=== PATIENT | female | born 1975 | race Caucasian/White ===

== ENCOUNTER 2016-10-26 02:45 | Emergency (ER) | payer MEDICAID, OTHER ==
[~2016-10-26] VITALS: Ht 142.2 cm; Wt 91.0 kg
[2016-10-26] MEDS ORDERED: KETOROLAC 60MG/2ML VIAL IM ONE (06:45)
[2016-10-26 07:10] VITALS: BP 127/73
== END 2016-10-26 10:15 | disposition home or self-care (01) ==
LOC: ER 02:50
DX: M51.36 Other intervertebral disc degeneration, lumbar region (principal); R20.9 Unspecified disturbances of skin sensation; M79.602 Pain in left arm; M79.601 Pain in right arm; M54.9 Dorsalgia, unspecified; Z90.49 Acquired absence of other specified parts of digestive tract
CPT/HCPCS: 72040; 72070; 72100; 81025; 96372; 99285; J1885

== ENCOUNTER 2017-03-23 02:18 | Emergency (ER) | payer OTHER ==
[~2017-03-23] VITALS: Ht 142.2 cm; Wt 122.5 kg
[2017-03-23 03:56] LABS: BASOPHILS % 0.6 % (0.0-2.0); EOSINOPHILS % 2.3 % (0.0-5.0); HEMATOCRIT. 33.4 % (36.0-48.0); HEMOGLOBIN. 10.9 g/dL (12.0-16.0); LYMPHOCYTES % 27.5 % (20.0-50.0); MEAN CORPUSCULAR HEMOGLOBIN 23.3 pg (28.0-32.0); MEAN CORPUSCULAR VOLUME 71.3 fL (81.0-99.0); MEAN PLATELET VOLUME 9.3 fl (7.4-10.4); MONOCYTES % 7.8 % (2.0-8.0); NEUTROPHILS % 61.8 % (40.0-76.0); PLATELET 216 x1000/uL (130-400); RED BLOOD CELL COUNT 4.68 mill/uL (4.2-5.4); RED CELL DISTRIBUTION WIDTH 15.8 % (11.6-14.6)
[2017-03-23 04:04] LABS: CARBON DIOXIDE 27 mEq/L (21-32); CHLORIDE 106 mEq/L (98-107)
[2017-03-23 06:14] VITALS: BP 130/80
== END 2017-03-23 06:14 | disposition home or self-care (01) ==
LOC: ER 02:19
DX: M79.606 Pain in leg, unspecified (principal); G89.29 Other chronic pain; M54.9 Dorsalgia, unspecified; Z90.49 Acquired absence of other specified parts of digestive tract; Z98.890 Other specified postprocedural states
CPT/HCPCS: 36415; 80048; 85025; 93005; 93970; 99285; Z7610

== ENCOUNTER 2019-11-23 00:57 | Emergency (ER) | payer MEDICAID, OTHER ==
[~2019-11-23] VITALS: Ht 142.2 cm; Wt 119.0 kg
[2019-11-23 01:06] VITALS: BP 124/72
== END 2019-11-23 02:10 | disposition home or self-care (01) ==
LOC: ER 00:57
DX: R20.0 Anesthesia of skin (principal); Z98.890 Other specified postprocedural states; Z90.49 Acquired absence of other specified parts of digestive tract; Z87.19 Personal history of other diseases of the digestive system
CPT/HCPCS: 99281

== ENCOUNTER 2021-06-03 16:15 | Inpatient (IN) | payer MEDICAID ==
[~2021-06-03] VITALS: Ht 142.2 cm; Wt 120.2 kg
[2021-06-03] MEDS ORDERED: DEXAMETHASONE 10 MG/ML VIAL IV ONE (17:15)
[2021-06-03] MEDS ORDERED: SODIUM CHLORIDE 0.9% 1000ML BAG (SEPSIS BOLUS) IV ONE (17:15)
[2021-06-03] MEDS ORDERED: CEFTRIAXONE 1 G PREMIX 50 ML IV ONE (17:15)
[2021-06-03] MEDS ORDERED: AZITHROMYCIN 500MG/250ML 250 ML IV ONE (17:15)
[2021-06-03] MEDS ORDERED: ACETAMINOPHEN 325MG TABLET PO ONE (17:30)
[2021-06-03] MEDS ORDERED: ASPIRIN 81MG TABLET PO ONE (17:30)
[2021-06-03 17:51] LABS: CLARITY URINE CLOUDY (CLEAR); COLOR URINE DARK YELLOW (YELLOW); KETONES URINE TRACE (NEGATIVE); LEUKOCYTE ESTERASE URINE TRACE (NEGATIVE); NITRITE URINE NEGATIVE (NEGATIVE); OCCULT BLOOD URINE NEGATIVE (NEGATIVE); PROTEIN URINE 1+ (NEGATIVE); SPECIFIC GRAVITY URINE 1.025 (1.005-1.030)
[2021-06-03 17:53] LABS: CHLORIDE 100 mEq/L (98-107)
[2021-06-03 18:47] LABS: HEMATOCRIT. 36.8 % (36.0-48.0); HEMOGLOBIN. 11.8 g/dL (12.0-16.0); MEAN CORPUSCULAR HEMOGLOBIN 23.5 pg (28.0-32.0); MEAN CORPUSCULAR VOLUME 73.2 fL (81.0-99.0); MEAN PLATELET VOLUME 8.9 fl (7.4-10.4); PLATELET 232 x1000/uL (130-400); RED BLOOD CELL COUNT 5.03 mill/uL (4.2-5.4); RED CELL DISTRIBUTION WIDTH 15.6 % (11.6-14.6)
[2021-06-03 21:47] LABS: PLATELET ESTIMATE NORMAL
[2021-06-04] MEDS ORDERED: GUAIFENESIN 200MG/10ML SUGAR FREE UDC PO PRN (06:45)
[2021-06-04 08:00] VITALS: BP 117/76
[2021-06-04] MEDS: HEPARIN 5000 UNITS/ML VIAL SUBCUT SCH ×2 (08:41→20:25)
[2021-06-04] MEDS: ACETAMINOPHEN 325MG TABLET PO PRN (08:41)
[2021-06-04] MEDS ORDERED: ALBUTEROL 6.7GM HFA INHALER ORI PRN (09:00)
[2021-06-04] MEDS ORDERED: LEVOFLOXACIN 500MG PREMIX 100 ML IV SCH (09:00)
[2021-06-04 10:17] VITALS: BP 117/76
[2021-06-04 11:41] LABS: BASOPHILS % 0.6 % (0.0-2.0); EOSINOPHILS % 0.4 % (0.0-5.0); HEMATOCRIT. 37.7 % (36.0-48.0); HEMOGLOBIN. 12.3 g/dL (12.0-16.0); MEAN CORPUSCULAR HEMOGLOBIN 23.9 pg (28.0-32.0); MEAN CORPUSCULAR VOLUME 73.4 fL (81.0-99.0); MEAN PLATELET VOLUME 9.3 fl (7.4-10.4); MONOCYTES % 6.8 % (2.0-8.0); NEUTROPHILS % 79.2 % (40.0-76.0); PLATELET 257 x1000/uL (130-400); RED BLOOD CELL COUNT 5.14 mill/uL (4.2-5.4); RED CELL DISTRIBUTION WIDTH 15.9 % (11.6-14.6)
[2021-06-04 12:00] VITALS: BP 116/72
[2021-06-04 16:00] VITALS: BP 134/80
[2021-06-04] MEDS: AZITHROMYCIN 500MG in DEXTROSE 5% WATER 250ML IV SCH (16:59)
[2021-06-04] MEDS: CEFTRIAXONE 1,000 MG in DEXTROSE 5% WATER 50 ML IV SCH (16:59)
[2021-06-04] MEDS ORDERED: CEFTRIAXONE 500 MG in DEXTROSE 5% WATER 50 ML IV SCH (17:00)
[2021-06-04] MEDS ORDERED: AZITHROMYCIN 250 MG in DEXT 5% WATER 250 ML IV SCH (17:00)
[2021-06-04] MEDS: DEXAMETHASONE 10 MG/ML VIAL IV SCH (19:24)
[2021-06-04 20:00] VITALS: BP 114/80
[2021-06-05] VITALS: BP 102/54
[2021-06-05 04:00] VITALS: BP 120/80
[2021-06-05 08:00] VITALS: BP 120/72
[2021-06-05] MEDS: HEPARIN 5000 UNITS/ML VIAL SUBCUT SCH ×2 (09:23→20:03)
[2021-06-05] MEDS: DEXAMETHASONE 10 MG/ML VIAL IV SCH (09:23)
[2021-06-05 12:00] VITALS: BP 134/81
[2021-06-05 16:00] VITALS: BP 125/86
[2021-06-05] MEDS: AZITHROMYCIN 500MG in DEXTROSE 5% WATER 250ML IV SCH (16:31)
[2021-06-05] MEDS: CEFTRIAXONE 1,000 MG in DEXTROSE 5% WATER 50 ML IV SCH (16:31)
[2021-06-05 20:00] VITALS: BP 96/61
[2021-06-06] VITALS: BP_SYST 104; BP_SYST 14; BP_DIAS 67
[2021-06-06 04:00] VITALS: BP 114/65
[2021-06-06 08:00] VITALS: BP 119/68
[2021-06-06] MEDS: HEPARIN 5000 UNITS/ML VIAL SUBCUT SCH ×2 (08:56→21:29)
[2021-06-06] MEDS: DEXAMETHASONE 10 MG/ML VIAL IV SCH (08:57)
[2021-06-06] MEDS: ACETAMINOPHEN 325MG TABLET PO PRN (10:09)
[2021-06-06 12:00] VITALS: BP 127/106
[2021-06-06 16:00] VITALS: BP 131/89
[2021-06-06] MEDS: AZITHROMYCIN 500 MG TABLET PO SCH (16:58)
[2021-06-06] MEDS: CEFTRIAXONE 1,000 MG in DEXTROSE 5% WATER 50 ML IV SCH (16:58)
[2021-06-06 20:00] VITALS: BP 134/81
[2021-06-06 21:19] LABS: HEMATOCRIT. 39.5 % (36.0-48.0); HEMOGLOBIN. 12.9 g/dL (12.0-16.0); MEAN CORPUSCULAR HEMOGLOBIN 24.2 pg (28.0-32.0); MEAN CORPUSCULAR VOLUME 74.2 fL (81.0-99.0); MEAN PLATELET VOLUME 9.3 fl (7.4-10.4); PLATELET 350 x1000/uL (130-400); RED BLOOD CELL COUNT 5.33 mill/uL (4.2-5.4); RED CELL DISTRIBUTION WIDTH 15.8 % (11.6-14.6)
[2021-06-06 21:57] LABS: CHLORIDE 101 mEq/L (98-107)
[2021-06-06 23:58] LABS: PLATELET ESTIMATE NORMAL
[2021-06-07] VITALS: BP 109/65
[2021-06-07 04:00] VITALS: BP 116/73
[2021-06-07 08:00] VITALS: BP 120/76
[2021-06-07] MEDS: HEPARIN 5000 UNITS/ML VIAL SUBCUT SCH ×2 (09:10→21:09)
[2021-06-07] MEDS: DEXAMETHASONE 10 MG/ML VIAL IV SCH (09:10)
[2021-06-07 12:00] VITALS: BP 137/86
[2021-06-07] MEDS: AZITHROMYCIN 500 MG TABLET PO SCH (15:56)
[2021-06-07 16:00] VITALS: BP 113/70
[2021-06-07] MEDS: CEFTRIAXONE 1,000 MG in DEXTROSE 5% WATER 50 ML IV SCH (16:01)
[2021-06-07] MEDS ORDERED: DEXTROSE 50% WATER 50ML SYRINGE IV PRN (19:15)
[2021-06-07 20:00] VITALS: BP 141/87
[2021-06-07] MEDS ORDERED: INSULIN LISPRO 100 UNITS/ML SUBCUT NR (20:45)
[2021-06-07] MEDS: BLOOD SUGAR DIAGNOSTIC STRIP TEST SCH (21:10)
[2021-06-07] MEDS: INSULIN LISPRO 100 UNITS/ML SUBCUT SCH (21:10)
[2021-06-08] VITALS: BP 118/70
[2021-06-08 08:00] VITALS: BP 113/72
[2021-06-08] MEDS: BLOOD SUGAR DIAGNOSTIC STRIP TEST SCH ×4 (08:36→21:12)
[2021-06-08] MEDS: INSULIN LISPRO 100 UNITS/ML SUBCUT SCH ×4 (08:42→21:11)
[2021-06-08] MEDS: HEPARIN 5000 UNITS/ML VIAL SUBCUT SCH ×2 (09:12→21:12)
[2021-06-08] MEDS: DEXAMETHASONE 10 MG/ML VIAL IV SCH (09:13)
[2021-06-08 16:00] VITALS: BP 116/65
[2021-06-08] MEDS ORDERED: INSULIN GLARGINE UD 100 UNITS/ML SYR SUBCUT ONE (18:45)
[2021-06-08] MEDS: CEFTRIAXONE 1,000 MG in DEXTROSE 5% WATER 50 ML IV SCH (19:19)
[2021-06-08 21:00] VITALS: BP 115/71
[2021-06-08] MEDS: INSULIN GLARGINE UD 100 UNITS/ML SYR SUBCUT SCH (21:11)
[2021-06-09] VITALS (7 sets, daily range): BP systolic 110–139; BP diastolic 60–77
[2021-06-09] MEDS: ACETAMINOPHEN 325MG TABLET PO PRN (05:17)
[2021-06-09 06:40] LABS: CHLORIDE 101 mEq/L (98-107)
[2021-06-09 07:39] LABS: HEMATOCRIT. 42.2 % (36.0-48.0); HEMOGLOBIN. 13.9 g/dL (12.0-16.0); MEAN CORPUSCULAR HEMOGLOBIN 24.2 pg (28.0-32.0); MEAN CORPUSCULAR VOLUME 73.6 fL (81.0-99.0); MEAN PLATELET VOLUME 9.3 fl (7.4-10.4); PLATELET 400 x1000/uL (130-400); RED BLOOD CELL COUNT 5.73 mill/uL (4.2-5.4); RED CELL DISTRIBUTION WIDTH 15.5 % (11.6-14.6)
[2021-06-09] MEDS: INSULIN LISPRO 100 UNITS/ML SUBCUT SCH ×4 (07:47→22:00)
[2021-06-09] MEDS: BLOOD SUGAR DIAGNOSTIC STRIP TEST SCH ×4 (07:47→21:20)
[2021-06-09] MEDS: DEXAMETHASONE 10 MG/ML VIAL IV SCH (09:58)
[2021-06-09] MEDS: HEPARIN 5000 UNITS/ML VIAL SUBCUT SCH ×2 (09:59→21:20)
[2021-06-09] MEDS: INSULIN GLARGINE UD 100 UNITS/ML SYR SUBCUT SCH ×2 (10:00→21:59)
[2021-06-10] VITALS (9 sets, daily range): BP systolic 109–137; BP diastolic 60–78
[2021-06-10] MEDS: BLOOD SUGAR DIAGNOSTIC STRIP TEST SCH ×4 (07:30→21:40)
[2021-06-10] MEDS: INSULIN LISPRO 100 UNITS/ML SUBCUT SCH ×4 (08:00→22:33)
[2021-06-10] MEDS: DEXAMETHASONE 10 MG/ML VIAL IV SCH (09:44)
[2021-06-10] MEDS: HEPARIN 5000 UNITS/ML VIAL SUBCUT SCH ×2 (09:45→21:40)
[2021-06-10] MEDS: INSULIN GLARGINE UD 100 UNITS/ML SYR SUBCUT SCH ×2 (09:46→22:32)
[2021-06-10 10:22] LABS: NUCLEATED RED BLOOD CELLS 2 /100 WBC; PLATELET ESTIMATE NORMAL
[2021-06-10 12:36] LABS: BG CARBOXYHEMOGLOBIN 0.4 % (0.5-1.5); BG DEOXYHEMOGLOBIN 19.9 % (0.0-5.0); BG FRACTION INSPIRED OXYGEN 21; BG HCO3 ACT 27.4 mmol/L (22.0-26.0); BG OXYHEMOGLOBIN 79.7 % (94.0-97.0); BG PCO2 37.3 mmHg (35.0-45.0); BG PH 7.484 (7.350-7.450); BG PO2 41.2 mmHg (75.0-100.0); BG SAMPLE SITE LEFT RADIAL; BG TOTAL HEMOGLOBIN 14.6 g/dL (12.0-18.0); BG VENT MODE ROOM AIR
[2021-06-11] VITALS: BP 120/70
[2021-06-11 04:00] VITALS: BP 119/63
[2021-06-11] MEDS: BLOOD SUGAR DIAGNOSTIC STRIP TEST SCH ×4 (07:30→21:01)
[2021-06-11 08:00] VITALS: BP 121/78
[2021-06-11] MEDS: INSULIN LISPRO 100 UNITS/ML SUBCUT SCH ×4 (08:00→21:00)
[2021-06-11] MEDS: HEPARIN 5000 UNITS/ML VIAL SUBCUT SCH ×2 (08:37→21:01)
[2021-06-11] MEDS: DEXAMETHASONE 10 MG/ML VIAL IV SCH (08:37)
[2021-06-11] MEDS: INSULIN GLARGINE UD 100 UNITS/ML SYR SUBCUT SCH ×2 (10:50→22:36)
[2021-06-11 12:00] VITALS: BP 125/72
[2021-06-11 16:00] VITALS: BP 134/71
[2021-06-11 20:00] VITALS: BP 133/71
[2021-06-12] VITALS (7 sets, daily range): BP systolic 99–143; BP diastolic 56–84
[2021-06-12] MEDS: BLOOD SUGAR DIAGNOSTIC STRIP TEST SCH ×4 (07:30→21:00)
[2021-06-12] MEDS: INSULIN LISPRO 100 UNITS/ML SUBCUT SCH ×4 (08:00→22:04)
[2021-06-12] MEDS: DEXAMETHASONE 10 MG/ML VIAL IV SCH (08:42)
[2021-06-12] MEDS: HEPARIN 5000 UNITS/ML VIAL SUBCUT SCH ×2 (08:43→22:02)
[2021-06-12] MEDS: BENZONATATE 100MG CAPSULE PO PRN (09:42)
[2021-06-12] MEDS: INSULIN GLARGINE UD 100 UNITS/ML SYR SUBCUT SCH ×2 (09:43→22:03)
[2021-06-12] MEDS ORDERED: METF-416 MT (10:29)
[2021-06-13] MEDS: BENZONATATE 100MG CAPSULE PO PRN (01:54)
[2021-06-13 04:00] VITALS: BP 127/70
[2021-06-13] MEDS: BLOOD SUGAR DIAGNOSTIC STRIP TEST SCH ×4 (07:30→21:00)
[2021-06-13 08:00] VITALS: BP 120/74
[2021-06-13] MEDS: INSULIN LISPRO 100 UNITS/ML SUBCUT SCH ×4 (08:00→22:32)
[2021-06-13] MEDS: INSULIN GLARGINE UD 100 UNITS/ML SYR SUBCUT SCH ×2 (10:17→22:32)
[2021-06-13] MEDS: HEPARIN 5000 UNITS/ML VIAL SUBCUT SCH ×2 (10:18→22:30)
[2021-06-13] MEDS: DEXAMETHASONE 10 MG/ML VIAL IV SCH (10:18)
[2021-06-13 12:00] VITALS: BP 135/80
[2021-06-13 16:00] VITALS: BP 133/81
[2021-06-14 03:52] VITALS: BP 115/60
[2021-06-14] MEDS: INSULIN LISPRO 100 UNITS/ML SUBCUT SCH ×3 (08:00→17:57)
[2021-06-14] MEDS: BLOOD SUGAR DIAGNOSTIC STRIP TEST SCH ×3 (08:11→17:57)
[2021-06-14] MEDS: DEXAMETHASONE 10 MG/ML VIAL IV SCH (08:11)
[2021-06-14] MEDS: HEPARIN 5000 UNITS/ML VIAL SUBCUT SCH (08:12)
[2021-06-14 08:45] LABS: BG BASE EXCESS -0.2 mmol/L (-2.0-2.0); BG CARBOXYHEMOGLOBIN 0.8 % (0.5-1.5); BG DEOXYHEMOGLOBIN 10.4 % (0.0-5.0); BG METHEMOGLOBIN 0.1 % (0.0-1.5); BG OXYGEN SATURATION 89.5 % (92.0-98.5); BG OXYHEMOGLOBIN 88.7 % (94.0-97.0); BG PH 7.418 (7.350-7.450); BG PO2 54.7 mmHg (75.0-100.0); BG SAMPLE SITE RIGHT RADIAL; BG TOTAL HEMOGLOBIN 14.7 g/dL (12.0-18.0); BG VENT MODE ROOM AIR
[2021-06-14 09:00] VITALS: BP 100/68
[2021-06-14] MEDS: INSULIN GLARGINE UD 100 UNITS/ML SYR SUBCUT SCH (10:22)
[2021-06-14 11:43] VITALS: BP 112/62
[2021-06-14 15:39] VITALS: BP 110/65
[2021-06-14 16:17] VITALS: BP 100/66
== END 2021-06-14 20:36 | disposition home or self-care (01) | DRG 720 ==
LOC: ER 16:15 → 7WST 20:40 → ENRESERV 06-04 04:11 → 5EST 06-08 12:46
PROVIDERS: ADMIT Internal Medicine; ATTEND Internal Medicine
DX: A41.89 Other specified sepsis (principal); J96.01 Acute respiratory failure with hypoxia; J12.82 Pneumonia due to coronavirus disease 2019; U07.1 COVID-19; E43 Unspecified severe protein-calorie malnutrition; E66.01 Morbid (severe) obesity due to excess calories; E87.1 Hypo-osmolality and hyponatremia; E11.9 Type 2 diabetes mellitus without complications; Z90.49 Acquired absence of other specified parts of digestive tract; Z68.43 Body mass index [BMI] 50.0-59.9, adult
CPT/HCPCS: 36415; 36600; 71045; 80048; 80053; 81003; 82375; 82728; 82805; 82962; 83036; 83605; 83615; 84145; 84484; 85025; 85379; 86140; 87426; 93005; 99285; A6261; C9803; J0456; J0696; J1100; J1644; J1815; J1956; J7030; J7040; J7060; U0003; U0005

== ENCOUNTER 2023-07-20 16:22 | Emergency (ER) | payer MEDICAID ==
[~2023-07-20] VITALS: Ht 154.9 cm; Wt 91.0 kg
[~2023-07-20 16:22] MED LIST: ACET-2708 MT; METF-416 MT
[2023-07-20 16:55] VITALS: BP 134/92; TEMP 98.2; O2SAT 100
[2023-07-20 17:08] VITALS: PULSE 81; RESP 16
[2023-07-20 18:13] LABS: CLARITY URINE CLOUDY (CLEAR); COLOR URINE YELLOW (YELLOW); GLUCOSE URINE NEGATIVE (NEGATIVE); KETONES URINE TRACE (NEGATIVE); LEUKOCYTE ESTERASE URINE NEGATIVE (NEGATIVE); NITRITE URINE NEGATIVE (NEGATIVE); OCCULT BLOOD URINE NEGATIVE (NEGATIVE); PH URINE 6.5 (4.5-8.0); PROTEIN URINE NEGATIVE (NEGATIVE); SPECIFIC GRAVITY URINE 1.026 (1.005-1.030)
[2023-07-20] MEDS: METHOCARBAMOL 500MG TABLET PO ONE (18:15)
[2023-07-20 19:08] LABS: BACTERIA URINE 1+; RBC URINE NONE SEEN /hpf (0-2); SQUAMOUS EPITHELIAL CELL URINE 1+ /lpf (RARE/1+); WBC URINE 0-2 /hpf (0-2)
[2023-07-20] MEDS ORDERED: LIDO700A30 TP (19:42)
[2023-07-20] MEDS ORDERED: METH-653 MT (19:42)
== END 2023-07-20 20:05 | disposition home or self-care (01) ==
LOC: ER 16:22
DX: S33.5XXA Sprain of ligaments of lumbar spine, initial encounter (principal); M47.896 Other spondylosis, lumbar region; Z87.19 Personal history of other diseases of the digestive system; Z90.49 Acquired absence of other specified parts of digestive tract; Z98.890 Other specified postprocedural states; W18.39XA Other fall on same level, initial encounter; Y93.89 Activity, other specified; Y92.89 Other specified places as the place of occurrence of the external cause; Y99.8 Other external cause status
CPT/HCPCS: 72100; 81003; 81025; 99284